=== PATIENT | female | born 2000 | race Caucasian/White ===

== ENCOUNTER 2020-02-19 23:56 | Emergency (ER) | payer MEDICAID ==
[~2020-02-19] VITALS: Ht 162.6 cm; Wt 68.0 kg
[2020-02-20 00:11] VITALS: BP 118/70
[2020-02-20] MEDS ORDERED: ONDANSETRON HCL 4MG/2ML INJ IV STA (00:28)
[2020-02-20] MEDS ORDERED: FAMOTIDINE 20MG/2ML VIAL IV STA (00:28)
[2020-02-20] MEDS ORDERED: SODIUM CHLORIDE 0.9% 1,000 ML IV ONE (00:28)
[2020-02-20] MEDS ORDERED: KETOROLAC 30MG/ML VIAL IV STA (00:28)
[2020-02-20 01:28] LABS: BASOPHILS % 0.3 % (0.0-2.0); CLARITY URINE CLEAR (CLEAR); COLOR URINE YELLOW (YELLOW); EOSINOPHILS % 0.5 % (0.0-5.0); HEMATOCRIT. 43.5 % (36.0-48.0); HEMOGLOBIN. 15.2 g/dL (12.0-16.0); KETONES URINE 2+ (NEGATIVE); LEUKOCYTE ESTERASE URINE NEGATIVE (NEGATIVE); LYMPHOCYTES % 15.1 % (20.0-50.0); MEAN CORPUSCULAR HEMOGLOBIN 30.6 pg (28.0-32.0); MEAN CORPUSCULAR VOLUME 87.4 fL (81.0-99.0); MEAN PLATELET VOLUME 9.2 fl (7.4-10.4); MONOCYTES % 4.4 % (2.0-8.0); NEUTROPHILS % 79.7 % (40.0-76.0); NITRITE URINE NEGATIVE (NEGATIVE); OCCULT BLOOD URINE NEGATIVE (NEGATIVE); PLATELET 302 x1000/uL (130-400); PROTEIN URINE NEGATIVE (NEGATIVE); RED BLOOD CELL COUNT 4.97 mill/uL (4.2-5.4); RED CELL DISTRIBUTION WIDTH 13.1 % (11.6-14.6); SPECIFIC GRAVITY URINE 1.021 (1.005-1.030); UROBILINOGEN URINE 0.2 E.U./dL (0.2-1.0)
[2020-02-20 01:32] LABS: CHLORIDE 103 mEq/L (98-107)
[2020-02-20 01:34] LABS: PROTHROMBIN TIME 10.4 sec (9.6-11.0)
== END 2020-02-20 04:04 | disposition home or self-care (01) ==
LOC: ER 23:56
DX: R11.10 Vomiting, unspecified (principal); R43.9 Unspecified disturbances of smell and taste
CPT/HCPCS: 36415; 80053; 81003; 81025; 83690; 85025; 85610; 96374; 96375; 99284; J1885; J2405; J3490; J7030